=== PATIENT | female | born 1970 | race Caucasian/White ===

== ENCOUNTER 2017-01-12 09:16 | Day surgery (SDC) | payer OTHER ==
[2017-01-09 10:39] VITALS: BMI 31.1
[2017-01-12] MEDS ORDERED: Lidocaine 1% Inj (20ml) ONE (11:20)
[2017-01-12] MEDS ORDERED: Bupivacaine HCl 0.25% PF (10 ml) Inj ONE (11:20)
[2017-01-12] MEDS ORDERED: Lactated Ringer's 1,000 ML IV ONE ×2 (12:30)
[2017-01-12] MEDS: ceFAZolin IV 1 gm in Dextrose 1 GM/50 ML BAG IVPB ONE ×2 (12:35→12:40)
[2017-01-12] MEDS ORDERED: Propofol 10 mg/ml Inj (20 ML) ONE (12:35)
[2017-01-12] MEDS ORDERED: Midazolam 2 MG/2 ML VIAL ONE (12:35)
[2017-01-12] MEDS ORDERED: Oxycodone/Acetaminophen 5/325 mg Tab PO PRN (13:32)
[2017-01-12] MEDS: HYDROmorphone 0.5 mg/0.5 ml ISec IVP PRN ×2 (13:35→13:50)
[2017-01-12 13:46] VITALS: O2SAT 100
[2017-01-12 14:46] VITALS: BP 149/77; PULSE 62; RESP 18; TEMP 97.2
== END 2017-01-12 16:30 | disposition home or self-care (01) ==
LOC: C.SDS 09:16
PROVIDERS: ATTEND Surgery
DX: D18.01 Hemangioma of skin and subcutaneous tissue (principal); I83.812 Varicose veins of left lower extremity with pain; M41.9 Scoliosis, unspecified; Z98.890 Other specified postprocedural states; G43.909 Migraine, unspecified, not intractable, without status migrainosus; Z72.0 Tobacco use; Z79.899 Other long term (current) drug therapy; B19.20 Unspecified viral hepatitis C without hepatic coma
CPT/HCPCS: 14301; 27337; 37765; 88304; 88307; J0690; J1170; J2250; J2704; J3010; J7120